=== PATIENT | female | born 1940 | race Caucasian/White ===

== ENCOUNTER 2016-05-09 09:57 | Emergency (ER) | payer OTHER ==
[~2016-05-09] VITALS: Ht 157.5 cm; Wt 89.9 kg
[~2016-05-09 09:57] MED LIST: ASPIR 8181 M1 PO; ATORVASTATIN CA40 MG PO; CELEBREX200 MG PO; CLOPIDOGREL75 MG PO; GLUCOPHAGE500 MG PO; LISINOPRIL40 MG PO; LOPRESSOR25 MG PO; RISPERIDONE0.5 MG PO
[2016-05-09 10:04] VITALS: BP 148/69
== END 2016-05-09 13:03 | disposition left against medical advice (07) ==
LOC: EME 09:57
DX: R44.1 Visual hallucinations (principal); Z53.21 Procedure and treatment not carried out due to patient leaving prior to being seen by health care provider

== ENCOUNTER 2016-05-10 06:58 | Emergency (ER) | payer OTHER ==
[~2016-05-10] VITALS: Ht 157.5 cm; Wt 90.0 kg
[2016-05-10 07:52] LABS: MCH 29.8 PG (29.0-34.0); MCHC 33.1 G/DL (30.0-36.0); MCV 90.1 FL (83-99); MEAN PLAT.VOLUME 9.6 uM^3 (9.5-12.4); PLATELET COUNT 284 K/uL (156-360); RBC DIS.WIDTH-CV 13.1 % (11.8-14.6); RBC DIS.WIDTH-SD 41.9 % (39-53); RED BLOOD COUNT 4.33 M/uL (3.80-5.20); WHITE BLOOD COUNT 7.2 K/uL (4.1-10.2)
[2016-05-10 08:03] LABS: CHLORIDE 108 mEq/L (99-109); POTASSIUM 4.1 mEq/L (3.7-5.4); SODIUM 141 mEq/L (136-147)
[2016-05-10 08:05] LABS: GLUCOSE 115 mg/dL (70-99)
[2016-05-10 08:06] LABS: ANION GAP 6 MEQ/L (2-14)
[2016-05-10 08:08] LABS: GFR ESTIMATE (CALCULATED) > 59 mL/min/
[2016-05-10 08:09] LABS: UREA NITROGEN (BUN) 15 mg/dL (9-23)
[2016-05-10 08:58] VITALS: BP 131/50
== END 2016-05-10 09:19 | disposition home or self-care (01) ==
LOC: EME 06:58
PROVIDERS: Nurse Practitioner Family
DX: F22 Delusional disorders (principal); F20.9 Schizophrenia, unspecified; E11.9 Type 2 diabetes mellitus without complications; I10 Essential (primary) hypertension; K21.9 Gastro-esophageal reflux disease without esophagitis; Z85.42 Personal history of malignant neoplasm of other parts of uterus; Z79.82 Long term (current) use of aspirin; Z88.5 Allergy status to narcotic agent; Z91.09 Other allergy status, other than to drugs and biological substances
CPT/HCPCS: 80048; 81003; 85027; 90839; 99281; 99284

== ENCOUNTER 2016-05-21 12:20 | Inpatient (IN) | payer OTHER ==
[~2016-05-21] VITALS: Ht 157.5 cm; Wt 98.0 kg
[2016-05-21] MEDS ORDERED: TRAMADOL HCL50 MG PO (12:45)
[2016-05-21 13:07] LABS: EOSINOPHIL (%) 2.2 % (0-5); EOSINOPHIL COUNT 0.1 K/uL (0-0.3); HEMATOCRIT 39.6 % (36.0-46.0); IMMATURE GRANULOCYTE (%) 0.5 % (0.0-0.7); IMMATURE GRANULOCYTE COUNT 0.3 K/uL; LYMPHOCYTE COUNT 1.9 K/uL (1.0-2.8); MCH 29.8 PG (29.0-34.0); MCHC 33.1 G/DL (30.0-36.0); MEAN PLAT.VOLUME 10.6 uM^3 (9.5-12.4); MONOCYTE (%) 5.7 % (3-12); MONOCYTE COUNT 0.4 K/uL (0-0.8); PLATELET COUNT 273 K/uL (156-360); RBC DIS.WIDTH-SD 42.1 % (39-53); WHITE BLOOD COUNT 6.5 K/uL (4.1-10.2)
[2016-05-21 13:17] LABS: CHLORIDE 108 mEq/L (99-109); POTASSIUM 3.9 mEq/L (3.7-5.4); SODIUM 141 mEq/L (136-147)
[2016-05-21 13:19] LABS: GLUCOSE 218 mg/dL (70-99)
[2016-05-21 13:20] LABS: ANION GAP 12 MEQ/L (2-14)
[2016-05-21 13:22] LABS: SERUM ETHYL ALCOHOL < 10 mg/dL
[2016-05-21 13:23] LABS: GFR ESTIMATE (CALCULATED) > 59 mL/min/; UREA NITROGEN (BUN) 17 mg/dL (9-23)
[2016-05-21 14:14] LABS: ADD MIUA? NO; BILIRUBIN NEGATIVE; BLOOD NEGATIVE; COLOR YELLOW ((YELLOW)); GLUCOSE (STRIP) NEGATIVE; KETONES NEGATIVE; LEUKOCYTES NEGATIVE; NITRITE NEGATIVE; PROTEIN (STRIP) NEGATIVE; SPECIFIC GRAVITY 1.019 (1.000-1.030); UROBILINOGEN 0.2 MG/DL (0.2-1.0)
[2016-05-21 14:21] LABS: AMPHETAMINE NEGATIVE (500 ng/mL); BARBITURATES NEGATIVE (200 ng/mL); BENZODIAZEPINES NEGATIVE (150 ng/mL); COCAINE NEGATIVE (150 ng/mL); INTERNAL CONTROLS VALID? YES; METHADONE NEGATIVE (200 ng/mL); METHAMPHETAMINE NEGATIVE (500 ng/mL); OPIATES (MORPHINE) NEGATIVE (100 ng/mL); OXYCODONE NEGATIVE (100 ng/mL); PHENCYCLIDINE NEGATIVE (25 ng/mL); PROPOXYPHENE NEGATIVE (300 ng/mL); THC CANNABINOIDS NEGATIVE (50 ng/mL); TRICYCLIC ANTIDEPRESSANTS NEGATIVE (300 ng/mL)
[2016-05-21] MEDS ORDERED: PLAVIX75 MG PO (15:03)
[2016-05-21] MEDS ORDERED: LIPITOR40 MG PO (15:03)
[2016-05-21] MEDS ORDERED: TOPROL XL25 MG PO (15:04)
[2016-05-21] MEDS ORDERED: RISPERDAL0.5 MG PO (15:05)
[2016-05-21 17:01] VITALS: BP 153/67
[2016-05-22 07:58] VITALS: BP 148/65
[2016-05-22 16:08] VITALS: BP 131/61
[2016-05-23 07:54] VITALS: BP 135/60
[2016-05-23] MEDS ORDERED: RISPERDAL1 MG PO ×2 (09:15→09:21)
== END 2016-05-23 16:17 | disposition home or self-care (01) | DRG 885 ==
LOC: EME 12:20 → EDOF 15:02 → 1WEST 15:02 → EDOF 15:02 → 1WEST 15:02
PROVIDERS: Emergency Medicine
DX: F22 Delusional disorders (principal); I10 Essential (primary) hypertension; K21.9 Gastro-esophageal reflux disease without esophagitis; Z60.2 Problems related to living alone
CPT/HCPCS: 80048; 81003; 85025; 90837; 97150 GO; 97165 GO; 99281; 99285; G0480